=== PATIENT | male | born 1965 | race Caucasian/White ===

== ENCOUNTER 2022-02-13 16:21 | Emergency (ER) | payer BC ==
[~2022-02-13] VITALS: Ht 175.3 cm; Wt 65.8 kg
[~2022-02-13 16:21] MED LIST: ALBU90OI6 INH; Aspirin EC325 MG PO; GINKGO BILOBA30 MG PO; IBUP800 PO; Nystatin15 GM; Ventolin Soln3 ML INH; Vibramycin100 MG PO
[2022-02-13 17:30] LABS: Influenza A, PCR NEGATIVE (NEGATIVE); Influenza B, PCR NEGATIVE (NEGATIVE); Resp Syncytial Virus, PCR NEGATIVE (NEGATIVE); SARS-Cov-2 (COVID-19) PCR, MMC NEGATIVE (NEGATIVE)
[2022-02-13 21:19] LABS: BASOPHILS PERCENT AUTO 0 % (0-2); Hematocrit 43.9 % (37.0-53.0); Hemoglobin 15.1 g/dL (13.5-17.5); LYMPHOCYTES PERCENT AUTO 10 % (21-46); MONOCYTES PERCENT AUTO 11 % (4-13); Mean Corpuscular HGB 30.8 pg (26.0-34.0); Mean Corpuscular HGB Conc 34.4 g/dL (31.5-36.5); Mean Corpuscular Volume 89 fL (80-100); Mean Platelet Volume 11.5 fL (9.1-12.4); Platelet Count 193 K/mm3 (150-400); RDW Standard Deviation 42.8 fL (35.1-46.3); Red Blood Cell Count 4.91 M/mm3 (4.30-5.90); White Blood Cell Count 20.79 K/mm3 (4.00-11.30)
[2022-02-13 21:20] LABS: IMMATURE GRAN PERCENT AUTO 1 % (0-1)
[2022-02-13 21:31] LABS: Albumin, Blood 3.4 g/dL (3.4-5.0); Albumin/Globulin Ratio 0.7 (0.8-1.8); Bilirubin, Total 0.7 mg/dL (0.1-1.0); Bun/Creatinine Ratio 18.6 (12.0-20.0); Calcium, Blood 9.4 mg/dL (8.5-10.1); Creatinine, Blood 1.02 mg/dL (0.60-1.20); Potassium, Blood 3.9 mmol/L (3.5-5.5); Total Protein, Blood 8.4 g/dL (6.4-8.2)
[2022-02-13 21:50] LABS: BASOPHILS ABSOLUTE AUTO 0.06 K/mm3 (0.00-0.23); EOSINOPHILS ABSOLUTE AUTO 0.01 K/mm3 (0.00-0.68); EOSINOPHILS PERCENT AUTO 0 % (0-6); LYMPHOCYTES ABSOLUTE AUTO 1.96 K/mm3 (0.84-5.20); MONOCYTES ABSOLUTE AUTO 2.31 K/mm3 (0.16-1.47); NEUTROPHILS ABSOLUTE AUTO 15.99 K/mm3 (1.96-9.15); NEUTROPHILS PERCENT AUTO 78 % (41-73)
[2022-02-13] MEDS ORDERED: CEFD300 PO (22:27)
[2022-02-13] MEDS ORDERED: Prednisone20 MG PO (22:27)
[2022-02-13] MEDS ORDERED: ALBU90OI INH (22:27)
== END 2022-02-13 22:35 | disposition home or self-care (01) ==
LOC: ER 16:21
PROVIDERS: Nurse Practitioner Psychiatric/Mental Health; Physician Assistant
DX: J18.9 Pneumonia, unspecified organism (principal); J44.1 Chronic obstructive pulmonary disease with (acute) exacerbation; Z88.0 Allergy status to penicillin; Z79.82 Long term (current) use of aspirin; Z79.899 Other long term (current) drug therapy; Z87.891 Personal history of nicotine dependence; Z20.822 Contact with and (suspected) exposure to COVID-19
CPT/HCPCS: 0241U; 71045; 80053; 85025; 94640; 94664; A9270; J7030; J7512